=== PATIENT | male | born 1960 | race Two or more races ===

== ENCOUNTER 2022-01-26 05:33 | Day surgery (SDC) | payer OTHER ==
[~2022-01-26 05:33] MED LIST: COZAAR50 MG PO
== END 2022-01-26 10:25 | disposition home or self-care (01) ==
LOC: CIR.AMB 05:33
PROVIDERS: ATTEND Specialist
DX: K42.9 Umbilical hernia without obstruction or gangrene (principal); I10 Essential (primary) hypertension

== ENCOUNTER 2022-08-11 12:09 | Outpatient (CLI) | payer OTHER ==
[~2022-08-11 12:09] MED LIST changes: +NORVASC10 MG PO
== END 2022-08-11 12:11 | disposition home or self-care (01) ==
LOC: SONOGRAMA 12:09
PROVIDERS: ATTEND Specialist
DX: K40.30 Unilateral inguinal hernia, with obstruction, without gangrene, not specified as recurrent (principal)

== ENCOUNTER 2022-12-07 06:15 | Day surgery (SDC) | payer OTHER ==
[~2022-12-07] VITALS: Ht 165.1 cm; Wt 59.0 kg
== END 2022-12-07 18:00 | disposition home or self-care (01) ==
LOC: CIR.AMB 06:15
PROVIDERS: ATTEND Specialist
DX: K40.30 Unilateral inguinal hernia, with obstruction, without gangrene, not specified as recurrent (principal); I10 Essential (primary) hypertension; Z91.018 Allergy to other foods; Z20.822 Contact with and (suspected) exposure to COVID-19